=== PATIENT | female | born 1945 | race Caucasian/White ===

== ENCOUNTER 2016-09-27 16:00 | Emergency (ER) | payer MEDICARE, OTHER ==
[~2016-09-27 16:00] MED LIST: ACCUNEB DP0.63 MG/3 IH; ASA CHILDREN'S81 MG PO; BACITRACIN OPH3.5 GM TP; BENADRYL-DPS25 MG PO; CENTRUM SILVER1 EAC1 PO; COLCRYS0.6 MG PO; COREG DPS12.5 MG PO; DESONIDE15 GM TP; DIOVAN320 MG PO; DULERA 100/58.8 GM NS; GLUCOTROL DPS10 MG PO; HCTZ12.5 MG PO; HYDRODIURIL-DPS25 MG PO; IMDUR DPS30 MG PO; LANTUS100 UNITS/ SQ; LEVAQUIN DPS500 MG PO; LIPITOR40 MG PO; MAG-OX400 MG PO; MUCINEX600 MG PO; NORVASC5 MG PO; OCEAN NASAL MIS45 ML NS; OMEGA-3 DPS1000 MG PO; PATADAY2.5 ML OU; PHENERGAN W/COD30 ML PO; SYNTHROID DP0.025 MG PO; SYNTHROID100 MCG PO; TANZEUM30 MG/0.5 SQ; TYLENOL DPS325 MG PO; VITAMIN E100 UNIT PO; ZANTAC DPS150 MG PO
--- NOTE | 2016-10-03 19:54 | ER ---
ADMIT: 09/27/2016 RM/LOC: ER [facility] MR#: [id number] [address] [address] SARAH NAVARRO [address] [place] [address] Emergency Room Report SEX: F AGE: 71 : 1945 DATE: 09/27/2016 CHIEF COMPLAINT: Dizziness. HISTORY OF PRESENT ILLNESS: This is a 71-year-old female, who presents with sudden onset of dizziness around 3:30 this afternoon. She states she went to sit in a chair, felt like the room was spinning in every which direction. At present, she admits to lightheadedness, dizziness, and nausea. Denies any hearing loss, ringing in the ears, ear pain, headache, numbness, syncope, or near-syncope. She does typically use a cane, states she has had some difficulty with dizziness in the past. Worse with changing position and moving the head. She was treated with antibiotics pending on Sunday for upper respiratory sinusitis-type symptoms. States she does have some chronic sinusitis as well as diabetes hypertension. Denies any new onset numbness, weakness in extremities. No speech difficulties. COURSE IN THE EMERGENCY ROOM: GENERAL: The patient was seen and examined, afebrile, nontoxic. Mild amount of distress, fairly anxious. HEENT: Pupils are equal and reactive. There is no nystagmus on exam. Pharynx is not erythematous. TMs are pearly white bilaterally. NECK: Supple. No thyromegaly. No lymphadenopathy. CHEST: Clear. No respiratory distress. No wheezes, rhonchi, or rales. HEART: Regular. No murmur, gallop, or rub. ABDOMEN: Soft and nontender. SKIN: Warm and dry. EXTREMITIES: No pedal edema. NEURO: She is alert, oriented. Speech is normal. Cooperative with exam. Cranial nerves normal. Motor normal. Sensation normal in the upper and lower extremities compared bilaterally. EKG shows a ventricular paced rhythm. No ST-T or Q wave abnormalities, rate of 61. White count 8.1, hemoglobin 14.7, hematocrit 43.3, platelets 114. Sodium 139, potassium 3.9, BUN 15, glucose 250, creatinine 0.9. UA; no signs of infection. Does have glucose greater than 1000, troponin less than 0.015. I did give her meclizine 50 mg p.o. as well as Reglan 10 p.o. States she is feeling less nauseous. States her dizziness is much improved. She was also given Zofran 4 mg ODT. ADMIT: 09/27/2016 RM/LOC: [facility] MR#: [id number] [address] [address] SARAH NAVARRO [address] [place] [address] Emergency Room Report SEX: F AGE: 71 : 1945 IMPRESSION: 1. Dizziness. 2. Nausea. 3. Weakness. 4. Type 2 diabetes. DISPOSITION: The patient was discharged on meclizine 25 mg p.o. b.i.d. Follow up with the primary care provider this week. Return home and rest. Continue home medications. Return for worsening signs or symptoms. Questions sought and answered to the best of my ability and to the patient's satisfaction. Discharged in good condition. CECI Sorto / Harish Mcmullen MD / priyal JOB #: [id number] CC: Harish Mcmullen MD, Attending Physician Yoon Oliver MD, Family Physician
== END 2016-09-27 18:57 | disposition home or self-care (01) ==
LOC: ER 16:00
DX: E11.9 Type 2 diabetes mellitus without complications (principal); R53.1 Weakness; I10 Essential (primary) hypertension; Z95.0 Presence of cardiac pacemaker; Z90.49 Acquired absence of other specified parts of digestive tract; Z90.710 Acquired absence of both cervix and uterus